=== PATIENT | male | born 1955 | race Caucasian/White ===

== ENCOUNTER 2020-07-01 09:04 | Emergency (ER) | payer OTHER ==
[2020-07-01 09:59] LABS: HEMOGLOBIN 13.9 gm/dl (14.0-17.5); RED BLOOD COUNT 4.57 M/UL (4.20-5.50)
[2020-07-01 10:19] LABS: BUN/CREATININE RATIO 13 (0-10)
== END 2020-07-01 14:23 | disposition home or self-care (01) ==
LOC: ER1 09:04
PROVIDERS: Nurse Practitioner
DX: R10.11 Right upper quadrant pain (principal); R19.7 Diarrhea, unspecified; R63.0 Anorexia; M54.9 Dorsalgia, unspecified; M06.9 Rheumatoid arthritis, unspecified; Z87.19 Personal history of other diseases of the digestive system; Z79.1 Long term (current) use of non-steroidal anti-inflammatories (NSAID); Z90.49 Acquired absence of other specified parts of digestive tract; Z95.0 Presence of cardiac pacemaker
CPT/HCPCS: 36415; 80053; 81001; 83605; 83690; 84484; 85025; 93005; 99284; J7040; Q9967

== ENCOUNTER → 2020-07-15 | Outpatient (CLI) | payer OTHER, MEDICARE | LOC: KOH-I 13:45 | DX: M79.602 Pain in left arm (principal) | CPT/HCPCS: 73060 ==

== ENCOUNTER 2021-01-21 12:16 | Emergency (ER) | payer OTHER ==
[2021-01-21 13:45] LABS: HEMOGLOBIN 15.1 gm/dl (14.0-17.5); RED BLOOD COUNT 5.14 M/UL (4.20-5.50); WHITE BLOOD COUNT 10.3 K/UL (4.5-11.0)
[2021-01-21] MEDS ORDERED: IMODIUM CAP 2 MG2 MG PO (18:37)
[2021-01-21] MEDS ORDERED: ZOFRAN ODT 4 MG4 MG PO (18:37)
== END 2021-01-21 19:26 | disposition home or self-care (01) ==
LOC: ER1 12:16
PROVIDERS: Physician Assistant
DX: I95.9 Hypotension, unspecified (principal); R19.7 Diarrhea, unspecified; R53.83 Other fatigue; Z20.822 Contact with and (suspected) exposure to COVID-19
CPT/HCPCS: 80053; 82550; 82553; 83874; 84484; 85025; 93005; 99284; U0002

== ENCOUNTER → 2021-06-29 | Outpatient (CLI) | payer OTHER, MEDICARE ==
[~2021-06-29] VITALS: Ht 177.8 cm; Wt 93.0 kg
[~2021-06-29] MED LIST: IMODIUM CAP 2 MG2 MG PO; ZOFRAN ODT 4 MG4 MG PO
== END ==
LOC: EROP 10:57
DX: U07.1 COVID-19 (principal); Z23 Encounter for immunization; I10 Essential (primary) hypertension; M06.9 Rheumatoid arthritis, unspecified
CPT/HCPCS: M0247; Q0247

== ENCOUNTER → 2021-07-28 | Outpatient (CLI) | payer OTHER, MEDICARE | LOC: RAD 08:53 | DX: M06.09 Rheumatoid arthritis without rheumatoid factor, multiple sites (principal); M19.042 Primary osteoarthritis, left hand; M19.041 Primary osteoarthritis, right hand | CPT/HCPCS: 73120 ==

== ENCOUNTER → 2021-08-24 | Outpatient (CLI) | payer OTHER, MEDICARE ==
[~2021-08-24] MED LIST changes: +ENDOCET 7.5-321 EACH PO; +LISINOPRIL10 MG PO; +LYRICA150 MG PO; +MELOXICAM7.5 MG PO; +MENS MULTIVITAMIN; +METOPROLOL SUCC25 MG PO; +MONTELUKAST SOD10 MG PO; +MULTIVITAMIN; +OMEPRAZOLE40 MG PO; +PREDNISONE5 MG PO; +TAMSULOSIN HCL0.4 MG PO; +ZYRTEC10 M3 PO
[2021-08-24 11:35] LABS: HEMOGLOBIN 13.1 gm/dl (14.0-17.5); RED BLOOD COUNT 4.27 M/UL (4.20-5.50); WHITE BLOOD COUNT 8.6 K/UL (4.5-11.0)
[2021-08-24 12:05] LABS: BUN/CREATININE RATIO 29 (0-10)
== END | disposition home or self-care (01) ==
LOC: OPSV2 09:00 → EDSTATUS 09:00 → OPSV2 10:45
PROVIDERS: Orthopaedic Surgery
DX: Z01.818 Encounter for other preprocedural examination (principal); M17.12 Unilateral primary osteoarthritis, left knee
CPT/HCPCS: 71046; 80048; 85025; 85652; 86140; 93005

== ENCOUNTER → 2021-08-30 | Outpatient (CLI) | payer OTHER, MEDICARE ==
[2021-08-30 12:27] LABS: BUN/CREATININE RATIO 18 (0-10)
== END ==
LOC: LAB 11:29
PROVIDERS: Orthopaedic Surgery
DX: Z01.812 Encounter for preprocedural laboratory examination (principal)
CPT/HCPCS: 36415; 80048; 86850; 86900; 86901; J7120

== ENCOUNTER → 2021-08-31 | Day surgery (SDC) | payer OTHER, MEDICARE | END | disposition home or self-care (01) | LOC: OR 05:03 → UNDOADMIN 05:35 → CDU 05:35 → EDSTATUS 14:30 | DX: M17.12 Unilateral primary osteoarthritis, left knee (principal); M06.862 Other specified rheumatoid arthritis, left knee; G89.18 Other acute postprocedural pain; I10 Essential (primary) hypertension; J45.909 Unspecified asthma, uncomplicated; K21.9 Gastro-esophageal reflux disease without esophagitis; I48.0 Paroxysmal atrial fibrillation; F41.9 Anxiety disorder, unspecified; Z79.1 Long term (current) use of non-steroidal anti-inflammatories (NSAID); Z79.899 Other long term (current) drug therapy; Z95.0 Presence of cardiac pacemaker; Z87.891 Personal history of nicotine dependence; Z72.89 Other problems related to lifestyle | CPT/HCPCS: 73560; 97116; 97161; 97166; 97535; C1713; C1776; G0378; J0690; J1100; J1170; J1200; J1885; J2250; J2270; J2274; J2405; J2704; J2710; J2795; J3010; J3370; J3475; J7120 ==